=== PATIENT | male | born 1945 ===

== ENCOUNTER 2024-06-18 17:25 | Outpatient (REF) | payer MEDICARE, MEDICAID, SELFPAY ==
[2024-06-18 15:29] LABS: HGB 12.7 g/dL (13.5-17.5); MCHC 32.6 % (32.0-36.0); MCV 89 fL (80-95); MPV 10.9 fL (8.0-11.0); Platelet Count 253 10^3/uL (130-400); RBC 4.38 10^6/uL (4.36-5.78); RDW 14.2 % (11.8-14.1); RDW-SD 46.2 fL; WBC 2.83 10^3/uL (4.4-10.8)
[2024-06-18 16:28] LABS: ALT 20 U/L (16-63); AST 17 U/L (15-37); Albumin 3.4 g/dL (3.4-5.0); Alkaline Phosphatase 65 U/L (46-116); Anion Gap 6.8 mmol/L (3-11); BUN 17 mg/dL (7-18); Bilirubin, Total 0.48 mg/dL (0.2-1.0); CO2 29.2 mmol/L (21.0-32.0); CREATININE 0.9 mg/dL (0.70-1.30); Calcium 8.9 mg/dL (8.5-10.1); Chloride 103 mmol/L (98-107); Estimated GFR 86.88 (mL/min/1.73m2); Glucose 129 mg/dL (74-106); Potassium 4.4 mmol/L (3.5-5.1); Sodium 139 mmol/L (136-145); Total Protein 6.2 g/dL (6.4-8.2)
== END 2024-06-18 17:26 | disposition home or self-care (01) ==
LOC: LBN 17:25
PROVIDERS: PCP Family Medicine; Visit Provider Family Medicine
DX: R68.89 Other general symptoms and signs (principal)
CPT/HCPCS: 80053; 85027

== ENCOUNTER 2025-04-04 15:08 | Outpatient (REF) | payer MEDICARE, MEDICAID, SELFPAY ==
[2025-04-04 14:25] LABS: ALT 34 U/L (16-63); AST 18 U/L (15-37); Albumin 3.8 g/dL (3.4-5.0); Alkaline Phosphatase 66 U/L (46-116); BUN 16 mg/dL (7-18); Bilirubin, Total 0.8 mg/dL (0.2-1.0); CREATININE 0.9 mg/dL (0.70-1.30); Calcium 8.7 mg/dL (8.5-10.1); Calculated LDL 41 mg/dL (<100); Chloride 103 mmol/L (98-107); Cholesterol 94 mg/dL (<200); Estimated GFR 86.88 (mL/min/1.73m2); Glucose 71 mg/dL (74-106); HDL Cholesterol 45 mg/dL (>or=40); Potassium 4.4 mmol/L (3.5-5.1); Sodium 141 mmol/L (136-145); Total Protein 6.2 g/dL (6.4-8.2); Triglyceride 44 mg/dL (<150)
== END 2025-04-04 15:09 | disposition home or self-care (01) ==
LOC: LBN 15:08
PROVIDERS: PCP Family Medicine; Visit Provider Family Medicine
DX: I25.10 Atherosclerotic heart disease of native coronary artery without angina pectoris (principal)
CPT/HCPCS: 80053; 80061

== ENCOUNTER 2025-05-09 22:26 | Emergency (ER) | payer MEDICARE, MEDICAID, SELFPAY ==
[2025-05-09] VITALS (12 sets, daily range): BP systolic 99–219; BP diastolic 59–197; PULSE 40–227; RESP 9–18; TEMP 36.7; O2SAT 95–96
--- NOTE | 2025-05-09 22:33 | W.ED.GENAD ---
Discharge Plan Disposition Patient Disposition: Home Condition: Good Discharge Details Clinical Impression: Diarrhea, Dehydration Primary Care Provider: Bekah Flowers ED Provider: Davy Soares Discharge Instructions Instructions: Dehydration, Adult (DC), Diarrhea, Adult ED Additional Instructions: At this time your C. difficile testing was negative. You have been rehydrated with IV fluids. Your laboratory workup is otherwise stable. If you do have continued diarrhea, I have given you an order form to go home with that has the orders for the additional stool testing. We are not able to perform this here tonight because you did not have enough stool and the diarrhea has seemingly improved. If you notice any worsening of your symptoms, or any new symptoms such as vomiting, diarrhea, fever, chills, shortness of breath, chest pain, numbness, weakness, or fainting , please return immediately to the emergency department for reevaluation. Please follow up with your primary care provider as soon as possible for reassessment and reevaluation. As always, it was a pleasure participating in your medical care today. Referrals: Bekah Flowers [Primary Care Provider, Medicine] HPI General Date/Time Provider Initiated Documentation: 05/09/25 22:29. HPI Narrative: This is an 80-year-old nonverbal male with past medical history of Alzheimer's dementia, coronary artery disease myocardial infarction, BPH, heart valve, who currently resides at [facility], who presents today for diarrhea. Patient cannot add to the history, but nursing staff from [facility] states that for the last 2 days he has had persistent nonbloody none melanotic stool. No other complaints. No vomiting. No fever. He has been prescribed Lomotil with no improvement of symptoms per [facility]. No other known history or complaints at this time. This is the patient's first time at our facility. General Stated Complaint: Nausea/Vomit/Diar MAME: 3 Exam Narrative Exam Narrative: 1.Const: Well-nourished, Well-developed, appearing stated age 2.Eyes: PERRL, no conjunctival injection, and symmetrical lids. 3.ENT: Atraumatic external nose and ears. Moist MM. Neck: Symmetric, trachea midline, No thyromegaly. 4.CVS: +S1/S2, Peripheral pulses 2+ and equal in all extremities. Brisk capillary refill in all extremities. 5.RESP: Unlabored respiratory effort. Clear to auscultation bilaterally. No wheezes rales or rhonchi 6.GI: Soft, Nontender/Nondistended, No hepatosplenomegaly. No guarding or rebound. 7.MSK: Normocephalic/Atraumatic, Extremities w/o deformity or ttp No cyanosis or clubbing, Normal movement of all extremities 8.Skin: Warm, Dry. No rashes or lesions. 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 Sensation grossly intact, no focal neurologic deficits. 10.Psych: (AAO) x3. Appropriate mood and affect Course Vital Signs Vital signs: Vital Signs Temperature 36.7 C 05/09/25 22:28 Pulse 59 L 05/09/25 22:28 Respiratory Rate 18 05/09/25 22:28 Blood Pressure 174/138 H 05/09/25 22:28 Pulse Oximetry 96 05/09/25 22:28 Temperature 36.7 C 05/09/25 22:28 Temperature Source Oral 05/09/25 22:28 Pulse 59 L 05/09/25 22:28 Respiratory Rate 18 05/09/25 22:28 Blood Pressure 174/138 H 05/09/25 22:28 Blood Pressure Position Sitting 05/09/25 22:28 Pulse Oximetry 96 05/09/25 22:28 Oxygen Delivery Method Room Air 05/09/25 22:28 Oxygen Flow Rate 0 05/09/25 22:28 Medical Decision Making This is an 80-year-old nonverbal male with past medical history of Alzheimer's dementia, coronary artery disease myocardial infarction, BPH, heart valve, who currently resides at [facility], who presents today for diarrhea. Patient cannot add to the history, but nursing staff from [facility] states that for the last 2 days he has had persistent nonbloody none melanotic stool. No other complaints. No vomiting. No fever. He has been prescribed Lomotil with no improvement of symptoms per [facility]. No other known history or complaints at this time. This is the patient's first time at our facility. Exam demonstrates moist mucous membranes, nontender abdomen, nonverbal patient otherwise. No active stool in the patient's diaper at this time. Will check for stool cultures, will gently rehydrate and check for electrolyte abnormalities, we will monitor closely and reassess. Will perform C. difficile testing. 1:47 AM Patient did not have any bowel movements here. Rectal exam demonstrated a small amount of moderate thickness stool. This was tested for C. difficile, and was negative. The remainder of his laboratory workup was benign. He was given a 500 cc fluid bolus and tolerated this well., Patient otherwise shows no signs of life-threatening intra-abdominal pathology, profound diarrhea or C. difficile colitis. No evidence to suggest toxic megacolon. I did contact his daughter who is the power of cost control specialist Mary. Discussed the case with her and the findings. She understands. Patient will be [facility]. I have extensively reviewed the treatment plan and discharge instructions with the patient and their family. I have addressed all patient concerns at this time. The patient and family was made aware of what symptoms to monitor for that would warrant a return to the emergency department. Discussed the plan with the patient and family, they demonstrate verbal understanding and agreement with our assessment and plan at this time. The documentation in this chart was dictated using s0cket dictation software. Please excuse any dictation errors. PFSH All Active Problems (Updated 05/10/25 @ 01:47 by Davy Soares DO) Dehydration (Acute) Diarrhea (Acute) Social History Smoking risk assessment performed?: No Alcohol Intake: never Substance use type: does not use
[2025-05-09 23:13] LABS: Abs Immature Grans 0.02 10^3/uL (0.0-0.06); HCT 34.3 % (40.0-50.0); HGB 11.4 g/dL (13.5-17.5); Immature Grans % 0.3 %; MCH 30.6 pg (27.0-33.0); MCHC 33.2 % (32.0-36.0); MCV 92 fL (80-95); MPV 11.3 fL (8.0-11.0); Platelet Count 166 10^3/uL (130-400); RBC 3.73 10^6/uL (4.36-5.78); RDW 15.7 % (11.8-14.1); RDW-SD 53.1 fL; WBC 6.29 10^3/uL (4.4-10.8)
[2025-05-09] MEDS: Normal Saline 500 ML IV (23:15)
[2025-05-09 23:30] LABS: ALT 25 U/L (16-63); AST 23 U/L (15-37); Albumin 3.4 g/dL (3.4-5.0); Alkaline Phosphatase 55 U/L (46-116); Anion Gap 6.4 mmol/L (3-11); BUN 19 mg/dL (7-18); Bilirubin, Total 0.6 mg/dL (0.2-1.0); CO2 29.6 mmol/L (21.0-32.0); Calcium 8.4 mg/dL (8.5-10.1); Chloride 106 mmol/L (98-107); Estimated GFR 93.15 (mL/min/1.73m2); Glucose 102 mg/dL (74-106); Magnesium 2.1 mg/dL (1.8-2.4); Potassium 4.0 mmol/L (3.5-5.1); Sodium 142 mmol/L (136-145); Total Protein 5.9 g/dL (6.4-8.2)
[2025-05-10 01:29] LABS: EPI 027-NAP1-B1 PRESUMPTIVE NEGATIVE
== END 2025-05-10 02:14 | disposition home or self-care (01) ==
PROVIDERS: Emergency Provider Student in an Organized Health Care Education/Training Program; PCP Family Medicine
DX: E86.0 Dehydration (principal); R19.7 Diarrhea, unspecified
CPT/HCPCS: 80053; 87015; 87269; 87272; 87505; 96360; 99284; 83735; 85025; 99283

== ENCOUNTER 2025-06-03 17:42 | Outpatient (REF) | payer MEDICARE, MEDICAID, SELFPAY ==
[2025-06-03 13:33] LABS: Abs Immature Grans 0.02 10^3/uL (0.0-0.06); HCT 39.7 % (40.0-50.0); HGB 13.0 g/dL (13.5-17.5); Immature Grans % 0.2 %; MCH 30.5 pg (27.0-33.0); MCHC 32.7 % (32.0-36.0); MCV 93 fL (80-95); MPV 11.8 fL (8.0-11.0); Platelet Count 192 10^3/uL (130-400); RBC 4.26 10^6/uL (4.36-5.78); RDW 15.1 % (11.8-14.1); RDW-SD 52.0 fL; WBC 9.30 10^3/uL (4.4-10.8)
[2025-06-03 14:07] LABS: ALT 18 U/L (16-63); AST 14 U/L (15-37); Albumin 3.6 g/dL (3.4-5.0); Alkaline Phosphatase 61 U/L (46-116); Anion Gap 4.8 mmol/L (3-11); BUN 21 mg/dL (7-18); Bilirubin, Total 0.9 mg/dL (0.2-1.0); CO2 32.2 mmol/L (21.0-32.0); Calcium 8.5 mg/dL (8.5-10.1); Calculated LDL 62 mg/dL (<100); Chloride 105 mmol/L (98-107); Cholesterol 114 mg/dL (<200); Estimated GFR 93.15 (mL/min/1.73m2); Glucose 149 mg/dL (74-106); HDL Cholesterol 44 mg/dL (>or=40); Potassium 4.5 mmol/L (3.5-5.1); Sodium 142 mmol/L (136-145); TSH (W/Ref FT4) 1.23 uIU/mL (0.36-3.74); Total Protein 5.9 g/dL (6.4-8.2); Triglyceride 42 mg/dL (<150); Vitamin D 25 Total 27 ng/mL (30-100)
== END 2025-06-03 17:43 | disposition home or self-care (01) ==
LOC: LBN 17:42
PROVIDERS: PCP Family Medicine; Visit Provider Nurse Practitioner Adult Health
DX: N18.2 Chronic kidney disease, stage 2 (mild) (principal)
CPT/HCPCS: 80053; 80061; 82306; 84443; 85025

== ENCOUNTER 2025-07-10 17:35 | Outpatient (REF) | payer MEDICARE, MEDICAID, SELFPAY ==
[2025-07-10 18:35] LABS: Abs Immature Grans 0.05 10^3/uL (0.0-0.06); HCT 38.9 % (40.0-50.0); HGB 12.8 g/dL (13.5-17.5); Immature Grans % 0.8 %; MCH 30.5 pg (27.0-33.0); MCHC 32.9 % (32.0-36.0); MCV 93 fL (80-95); MPV 12.0 fL (8.0-11.0); Platelet Count 189 10^3/uL (130-400); RBC 4.20 10^6/uL (4.36-5.78); RDW 14.6 % (11.8-14.1); RDW-SD 50.0 fL; WBC 6.02 10^3/uL (4.4-10.8)
[2025-07-10 19:26] LABS: ALT 46 U/L (16-63); AST 28 U/L (15-37); Albumin 3.6 g/dL (3.4-5.0); Alkaline Phosphatase 58 U/L (46-116); Anion Gap 10.0 mmol/L (3-11); BUN 14 mg/dL (7-18); Bilirubin, Total 0.4 mg/dL (0.2-1.0); CO2 28.0 mmol/L (21.0-32.0); Calcium 8.5 mg/dL (8.5-10.1); Chloride 105 mmol/L (98-107); Estimated GFR 93.15 (mL/min/1.73m2); Folate 13.6 ng/mL (8.6-20.0); Glucose 113 mg/dL (74-106); Potassium 4.4 mmol/L (3.5-5.1); Sodium 143 mmol/L (136-145); TSH 1.52 uIU/mL (0.36-3.74); Total Protein 6.1 g/dL (6.4-8.2); Vitamin B12 593 pg/mL (193-986)
== END 2025-07-10 17:36 | disposition home or self-care (01) ==
LOC: LBN 17:35
PROVIDERS: PCP Family Medicine; Visit Provider Nurse Practitioner Adult Health
DX: F33.1 Major depressive disorder, recurrent, moderate (principal); I13.10 Hypertensive heart and chronic kidney disease without heart failure, with stage 1 through stage 4 chronic kidney disease, or unspecified chronic kidney disease
CPT/HCPCS: 80053; 80164; 82607; 82746; 84443; 85025

== ENCOUNTER 2025-08-24 14:52 | Outpatient (REF) | payer MEDICARE, MEDICAID, SELFPAY ==
[2025-08-24 15:39] LABS: COVID-19 PCR Negative (Negative); RSV PCR Negative (Negative)
== END 2025-08-24 14:53 | disposition home or self-care (01) ==
LOC: LBN 14:52
PROVIDERS: PCP Family Medicine; Visit Provider Nurse Practitioner Adult Health
DX: J06.9 Acute upper respiratory infection, unspecified (principal)
CPT/HCPCS: 87637

== ENCOUNTER 2025-09-30 11:35 | Emergency (ER) | payer MEDICARE, MEDICAID, SELFPAY ==
[2025-09-30 11:38] VITALS: BP 102/61; PULSE 80; RESP 24; TEMP 37; O2SAT 94
[2025-09-30 11:42] VITALS: BP 102/61; PULSE 80; RESP 24; TEMP 37; O2SAT 94
--- NOTE | 2025-09-30 13:15 | DI.RAD_ITS ---
Exam(s) XR HIP PELVIS ADULT BL EXAM: XR HIP PELVIS ADULT BL CLINICAL HISTORY: weakness. TECHNIQUE: 2D digital imaging was performed. Three views. COMPARISON: No exams were available for comparison FINDINGS: BONES: No acute fracture is present. No bony destructive lesion is seen. JOINTS: No dislocation present. There is mild bilateral hip joint space narrowing and periarticular spurring. There are degenerative changes of the sacroiliac joints. Pubic symphysis is unremarkable. SOFT TISSUE: Normal. IMPRESSION: No acute abnormality. DATA REPOSITORY: RADIATION DOSE DELIVERED:
--- NOTE | 2025-09-30 13:15 | RT.EKG_ITS ---
APPROVED REPORT Exam: Resting ECG Reason for Exam: weakness Patient Location: E HR:57 bpm ECG Measurements Heart Rate 57 AXIS FL 187 P 36 QRSd 117 QRS -35 QT 453 T 41 QTc 442 Conclusion Sinus bradycardia...rate< 60 Nonspecific intraventricular conduction delay...QRSd >115mS, not LBBB/RBBB No Occlusion MD
--- NOTE | 2025-09-30 13:28 | DI.RAD_ITS ---
Exam(s) XR CHEST 1V IN DI DEPT EXAM: XR CHEST 1V IN DI DEPT CLINICAL HISTORY: weakness TECHNIQUE: 2D digital imaging was performed. COMPARISON: No exams were available for comparison FINDINGS: Exam is limited by poor pulmonary inflation and under penetration. LUNGS: Grossly clear. No pleural abnormality seen. HEART: Mildly enlarged. AORTA: Normal diameter. BONES: Unremarkable for age. Soft tissues: Unremarkable. IMPRESSION: No acute findings. DATA REPOSITORY: RADIATION DOSE DELIVERED:
[2025-09-30 14:28] LABS: COVID-19 PCR Negative (Negative); RSV PCR Negative (Negative)
[2025-09-30] MEDS: LORazepam 2 MG/ML VIAL 0.5 MG IVP ×2 (14:56→16:40)
[2025-09-30] MEDS: Normal Saline 500 ML IV (14:57)
[2025-09-30 15:04] LABS: Abs Immature Grans 0.06 10^3/uL (0.0-0.06); HCT 42.7 % (40.0-50.0); HGB 13.8 g/dL (13.5-17.5); Immature Grans % 0.8 %; MCH 29.3 pg (27.0-33.0); MCHC 32.3 % (32.0-36.0); MCV 91 fL (80-95); MPV 11.4 fL (8.0-11.0); Platelet Count 165 10^3/uL (130-400); RBC 4.71 10^6/uL (4.36-5.78); RDW 14.6 % (11.8-14.1); RDW-SD 49.1 fL; WBC 7.43 10^3/uL (4.4-10.8)
[2025-09-30 15:31] LABS: ALT 21 U/L (10-49); AST 23 U/L (<34); Albumin 3.9 g/dL (3.2-5.0); Alkaline Phosphatase 57 U/L (46-116); Anion Gap 7.4 mmol/L (3-11); BUN 23 mg/dL (9-23); Bilirubin, Total 0.5 mg/dL (0.2-1.2); CO2 30.6 mmol/L (20.0-31.0); Calcium 8.9 mg/dL (8.3-10.6); Chloride 105 mmol/L (98-107); Glucose 93 mg/dL (74-106); Potassium 4.2 mmol/L (3.5-5.1); Sodium 143 mmol/L (136-145); Total Protein 6.3 g/dL (5.7-8.2)
[2025-09-30 15:38] LABS: Troponin I 7 ng/L (<54)
--- NOTE | 2025-09-30 15:39 | W.ED.GENAD ---
Discharge Plan Disposition Patient Disposition: [facility] Facility(SNF) Condition: Stable Discharge Details Clinical Impression: Weakness Primary Care Provider: Bekah Flowers ED Provider: Davy Watts Home Meds and New Rx's Prescriptions: Continued donepezil [Aricept] 10 mg tablet 10 mg PO QHS aspirin [Adult Low Dose Aspirin] 81 mg tablet,delayed release (DR/EC) 81 mg PO DAILY polyethylene glycol 3350 [ClearLax] 17 gram/dose powder 17 g PO DAILY PRN mirtazapine 15 mg tablet 15 mg PO QHS silodosin [Rapaflo] 4 mg capsule 4 mg PO DAILY Rx Instructions: must administer with a meal/food cimetidine 400 mg tablet 400 mg PO BID Rx Instructions: administer with meals divalproex [Depakote Sprinkles] 125 mg capsule, delayed rel sprinkle 375 mg PO BID tamsulosin 0.4 mg capsule 0.4 mg PO BID acetaminophen 325 mg capsule 650 mg PO Q4H PRN Discharge Instructions Instructions: Generalized Weakness Additional Instructions: Patient seen in the emergency department for possibly favoring right leg versus generalized weakness, there is no evidence of elevated white blood cells, lactate is normal, no trauma to right hip on x-ray, no abnormality chest x-ray, no abnormality head CT, urine culture is pending but there is no signs of severe infection on urinalysis. Unclear what is causing patient's increased agitation from his baseline state but no clear emergent pathology carey lane's visit, please return for any other emergent concerns. Referrals: Bekah Flowers [Primary Care Provider, Medicine] Discharge Data Discharge Date/Time-TO BE ENTERED AT DEPARTURE: 09/30/25 21:07 HPI General Date/Time Provider Initiated Documentation: 09/30/25 12:20. HPI Narrative: This 80-year-old male with history of dementia nonverbal, DPOA Mary presents with report of right lower extremity pain. Patient reportedly was having trouble walking and limping per rehab staff. He was also agitated which apparently is atypical for him per staff. There have been no reported falls vomiting or illnesses and patient was at his baseline yesterday reportedly. No change of medications per rehab or daughter. She states sometimes her symptoms wax and wane with his dementia although typically he does not have trouble ambulating and walks independently without a walker. Related Data Home Medications ?Medication ?Instructions ?Recorded ?Confirmed acetaminophen 325 mg capsule 650 mg PO Q4H PRN 09/30/25 09/30/25 aspirin 81 mg tablet,delayed 81 mg PO DAILY 09/30/25 09/30/25 release (Adult Low Dose Aspirin) cimetidine 400 mg tablet 400 mg PO BID 09/30/25 09/30/25 divalproex 125 mg capsule,delayed 375 mg PO BID 09/30/25 09/30/25 release sprinkle (Depakote Sprinkles) donepezil 10 mg tablet (Aricept) 10 mg PO QHS 09/30/25 09/30/25 mirtazapine 15 mg tablet 15 mg PO QHS 09/30/25 09/30/25 polyethylene glycol 3350 17 17 g PO DAILY PRN 09/30/25 09/30/25 gram/dose oral powder (ClearLax) silodosin 4 mg capsule (Rapaflo) 4 mg PO DAILY 09/30/25 09/30/25 tamsulosin 0.4 mg capsule 0.4 mg PO BID 09/30/25 09/30/25 General Stated Complaint: GenMedical MAME: 3 Exam Narrative Exam Narrative: Patient is alert, he responds to his name, he has no evidence of trauma, I examined him from head to toe, he does not have any specific areas of discomfort when I press, his oropharynx patent his uvula is midline, his lower extremities seem weak Course Vital Signs Vital signs: Vital Signs Temperature 37.0 C 09/30/25 11:38 Pulse 80 09/30/25 11:38 Respiratory Rate 24 09/30/25 11:38 Blood Pressure 102/61 09/30/25 11:38 Pulse Oximetry 94 09/30/25 11:38 Temperature 37.0 C 09/30/25 11:42 Pulse 80 09/30/25 11:42 Respiratory Rate 24 09/30/25 11:42 Blood Pressure 102/61 09/30/25 11:42 Blood Pressure Position Sitting 09/30/25 11:42 Pulse Oximetry 94 09/30/25 11:42 Oxygen Delivery Method Room Air 09/30/25 11:42 Oxygen Flow Rate 0 09/30/25 11:42 Lab/Test Results Lab/Test Results: 09/30/25 14:50 Blood Blood Culture - Pending 09/30/25 13:28 Blood Blood Culture - Pending Laboratory Tests Range/Units 09/30/25 09/30/25 13:45 14:50 WBC (4.4-10.8) 10^3/uL 7.43 RBC (4.36-5.78) 10^6/uL 4.71 Hgb (13.5-17.5) g/dL 13.8 Hct (40.0-50.0) % 42.7 MCV (80-95) fL 91 MCH (27.0-33.0) pg 29.3 MCHC (32.0-36.0) % 32.3 RDW (11.8-14.1) % 14.6 H Plt Count (130-400) 10^3/uL 165 MPV (8.0-11.0) fL 11.4 H Immature Gran % % 0.8 Neutrophils % % 61.8 Lymphocytes % % 24.2 Monocytes % % 9.7 Eosinophils % % 2.8 Basophils % % 0.7 Nucleated RBC % (0.0-0.3) % 0.0 Absolute Neutrophils (1.2-6.7) 10^3/uL 4.59 Absolute Lymphocytes (1.2-3.4) 10^3/uL 1.80 Absolute Monocytes (0.1-0.8) 10^3/uL 0.72 Absolute Eosinophils (0.0-0.7) 10^3/uL 0.21 Absolute Basophils (0.0-0.2) 10^3/uL 0.05 VBG Lactate (<or=2.0) mmol/L 1.9 Sodium (136-145) mmol/L 143 Potassium (3.5-5.1) mmol/L 4.2 Chloride (98-107) mmol/L 105 Carbon Dioxide (20.0-31.0) mmol/L 30.6 Anion Gap (3-11) mmol/L 7.4 BUN (9-23) mg/dL 23 Creatinine (0.73-1.18) mg/dL 1.03 Est GFR (CKD-EPI 2020) (mL/min/1.73m2) 69.41 Glucose (74-106) mg/dL 93 Calcium (8.3-10.6) mg/dL 8.9 Total Bilirubin (0.2-1.2) mg/dL 0.5 AST (<34) U/L 23 ALT (10-49) U/L 21 Alkaline Phosphatase (46-116) U/L 57 Troponin I (<54) ng/L 7 Total Protein (5.7-8.2) g/dL 6.3 Albumin (3.2-5.0) g/dL 3.9 COVID-19 Source Nasopharynx SARS-CoV-2 (PCR) (Negative) Negative Influenza Type A (PCR) (Negative) Negative Influenza Type B (PCR) (Negative) Negative RSV (PCR) (Negative) Negative Medical Decision Making Results: Chest x-ray and hip x-rays per radiology interpretation on my review do not show acute abnormality, CBC, CMP, blood cultures all within normal limits including troponin Assessment plan: Patient here with weakness versus hip injury. His x-rays and diagnostic labs are reassuring. This could certainly be progression of dementia but patient is pending urinalysis which will need to be obtained with straight cath secondary to baseline urinary incontinence. Flu COVID and RSV are negative. Patient's urinalysis is negative I see no reason why he cannot return to the rehabilitation center at this time. I did consider CT head however patient seems to be at his baseline there is been no head injury. Will discuss with Mary once urinalysis is back regarding plan. PFSH All Active Problems (Updated 09/30/25 @ 20:32 by BOBBY Aguiar) Weakness (Acute) Social History Smoking risk assessment performed?: No Alcohol Intake: never Substance use type: does not use
[2025-09-30 16:12] LABS: Troponin I 6 ng/L (<54)
--- NOTE | 2025-09-30 17:13 | W.EDPROG ---
Date of service: 09/30/25 Time of Service: 17:14 Medical Decision Making This dictation utilizes [id number] dictation software and may contain unedited grammatical errors. Patient signed out to me by Yoselin Canales PA-C, please see her complete note. At this time we are waiting for urinalysis on the suspicion of UTI on a patient with known dementia sent to us from rehab facility who has been loudly yelling for an unknown reason and possibly favoring his right leg. X-ray of the hip is negative, patient's laboratory workup is reassuring for no signs of severe infection, no major electrolyte abnormalities, serial negative troponins, negative for COVID flu and RSV and lactate showing unlikely sepsis, chest x-ray unremarkable. Plan to disposition back to facility with strict return criteria but no definitive source of the patient's increased agitation beyond his baseline dementia. Patients' medical history: Alzheimer's, history of colon cancer, difficulty swallowing, hematuria, Parkinson's disease, hyperlipidemia, Lyme disease, impaired fasting glucose, monocular diplopia, anemia, GI bleeding, remote history of myocardial infarction, diverticular disease. Family and social history: Lives at SNF, POA is Mary. Differential / pathologies of concern include at time of sign-out no suspicion for acute stroke, ACS, profound anemia, sepsis, considering UTI, adding CT head for other cause of agitation. Diagnostic studies of: -Reviewed prior labs, added CT head which was negative, UA shows no signs of infection, shows hematuria which is consistent with patient's history. Interventions of: -Started maintenance fluids at 150 mL an hour, discussed with patient's POA and him sending back to SNF. ED Course/Assessment/Plan: 80-year-old male presents with increased agitation in the setting of chronic Alzheimer's and Parkinson's disease, awaiting UA at time of signout, added to CT head while awaiting UA which was negative, UA shows hematuria with inconclusive micro, urine culture sent, plan to discharge back to facility as he has adequate supervision, no signs of sepsis, no signs of aspiration pneumonia on chest x-ray, no signs of hip trauma to the right lower extremity. Findings not consistent with ACS, Aspiration PNA, Sepsis, ICH, Brain mass, clear UTI, electrolyte abnormality. Disposition of Weakness. Patient verbalized understanding of the plan and return to ED criteria and engaged in shared decision making. Medical Records Medical records reviewed: Yes I reviewed the patient's medical records. Imaging Data Radiologic Study: Attestation: I personally reviewed and interpreted this imaging study as follows: Imaging: X-Ray Radiologist's impression: EXAM: XR HIP PELVIS ADULT BL CLINICAL HISTORY: weakness. TECHNIQUE: 2D digital imaging was performed. Three views. COMPARISON: No exams were available for comparison FINDINGS: BONES: No acute fracture is present. No bony destructive lesion is seen. JOINTS: No dislocation present. There is mild bilateral hip joint space narrowing and periarticular spurring. There are degenerative changes of the sacroiliac joints. Pubic symphysis is unremarkable. SOFT TISSUE: Normal. IMPRESSION: No acute abnormality. Radiologic Study #2: Attestation: I personally reviewed and interpreted this imaging study as follows: Imaging: X-Ray Radiologist's impression: EXAM: XR CHEST 1V IN DI DEPT CLINICAL HISTORY: weakness TECHNIQUE: 2D digital imaging was performed. COMPARISON: No exams were available for comparison FINDINGS: Exam is limited by poor pulmonary inflation and under penetration. LUNGS: Grossly clear. No pleural abnormality seen. HEART: Mildly enlarged. AORTA: Normal diameter. BONES: Unremarkable for age. Soft tissues: Unremarkable. IMPRESSION: No acute findings. Radiologic Study #3: Attestation: I personally reviewed and interpreted this imaging study as follows: Imaging: CT Scan Radiologist's impression: EXAM: CT HEAD WO CLINICAL HISTORY: unsteady gait in dementia, altered?. TECHNIQUE: Imaging Protocol: Axial computed tomography images with coronal and sagittal reformatted images were created and reviewed COMPARISON: No exams were available for comparison FINDINGS: Exam limited by streak artifact in the on the lower images. Ventricles and Extra axial spaces: Normal in size and morphology for the patient's age and degree of atrophy.. Hemorrhage: None. Cerebral parenchyma: No evidence of acute infarct or mass. Mild atrophy consistent with the patient's age. Midline shift: None. Brainstem/Cerebellum: Normal. Bones: No skull or facial fractures. Visualized Paranasal sinuses:Clear. Mastoids: Clear. Soft Tissues: Unremarkable. ORBITS: Unremarkable. PITUITARY: Not enlarged. IMPRESSION: No acute intracranial process. Lab Data Lab results reviewed: Yes I reviewed the patient's lab results. Labs: 09/30/25 19:44 Urine - Reflex from Ua Urine Culture - Pending 09/30/25 16:16 Blood Blood Culture - Pending 09/30/25 14:50 Blood Blood Culture - Pending Laboratory Tests Range/Units 09/30/25 09/30/25 09/30/25 13:45 14:50 15:52 WBC (4.4-10.8) 10^3/uL 7.43 RBC (4.36-5.78) 10^6/uL 4.71 Hgb (13.5-17.5) g/dL 13.8 Hct (40.0-50.0) % 42.7 MCV (80-95) fL 91 MCH (27.0-33.0) pg 29.3 MCHC (32.0-36.0) % 32.3 RDW (11.8-14.1) % 14.6 H Plt Count (130-400) 10^3/uL 165 MPV (8.0-11.0) fL 11.4 H Immature Gran % % 0.8 Neutrophils % % 61.8 Lymphocytes % % 24.2 Monocytes % % 9.7 Eosinophils % % 2.8 Basophils % % 0.7 Nucleated RBC % (0.0-0.3) % 0.0 Absolute Neutrophils (1.2-6.7) 10^3/uL 4.59 Absolute Lymphocytes (1.2-3.4) 10^3/uL 1.80 Absolute Monocytes (0.1-0.8) 10^3/uL 0.72 Absolute Eosinophils (0.0-0.7) 10^3/uL 0.21 Absolute Basophils (0.0-0.2) 10^3/uL 0.05 VBG Lactate (<or=2.0) mmol/L 1.9 Sodium (136-145) mmol/L 143 Potassium (3.5-5.1) mmol/L 4.2 Chloride (98-107) mmol/L 105 Carbon Dioxide (20.0-31.0) mmol/L 30.6 Anion Gap (3-11) mmol/L 7.4 BUN (9-23) mg/dL 23 Creatinine (0.73-1.18) mg/dL 1.03 Est GFR (CKD-EPI 2020) (mL/min/1.73m2) 69.41 Glucose (74-106) mg/dL 93 Calcium (8.3-10.6) mg/dL 8.9 Total Bilirubin (0.2-1.2) mg/dL 0.5 AST (<34) U/L 23 ALT (10-49) U/L 21 Alkaline Phosphatase (46-116) U/L 57 Troponin I (<54) ng/L 7 6 Total Protein (5.7-8.2) g/dL 6.3 Albumin (3.2-5.0) g/dL 3.9 Urine Color (Yellow) Urine Clarity (Clear) Urine pH (5-8) Ur Specific [place] (1.005-1.025) Urine Protein (Neg-Trace) mg/dL Urine Ketones (Negative) mg/dL Urine Blood (Negative) Urine Nitrite (Negative) Urine Bilirubin (Negative) Urine Urobilinogen (Up to 0.2) mg/dL Ur Leukocyte Esterase (Negative) Urine RBC (0-2) HPF Urine WBC Ur Epithelial Cells Urine Crystals Urine Bacteria Urine Mucus Ur Culture Indicated? Urine Glucose (Negative) mg/dL COVID-19 Source Nasopharynx SARS-CoV-2 (PCR) (Negative) Negative Influenza Type A (PCR) (Negative) Negative Influenza Type B (PCR) (Negative) Negative RSV (PCR) (Negative) Negative Range/Units 09/30/25 19:44 WBC (4.4-10.8) 10^3/uL RBC (4.36-5.78) 10^6/uL Hgb (13.5-17.5) g/dL Hct (40.0-50.0) % MCV (80-95) fL MCH (27.0-33.0) pg MCHC (32.0-36.0) % RDW (11.8-14.1) % Plt Count (130-400) 10^3/uL MPV (8.0-11.0) fL Immature Gran % % Neutrophils % % Lymphocytes % % Monocytes % % Eosinophils % % Basophils % % Nucleated RBC % (0.0-0.3) % Absolute Neutrophils (1.2-6.7) 10^3/uL Absolute Lymphocytes (1.2-3.4) 10^3/uL Absolute Monocytes (0.1-0.8) 10^3/uL Absolute Eosinophils (0.0-0.7) 10^3/uL Absolute Basophils (0.0-0.2) 10^3/uL VBG Lactate (<or=2.0) mmol/L Sodium (136-145) mmol/L Potassium (3.5-5.1) mmol/L Chloride (98-107) mmol/L Carbon Dioxide (20.0-31.0) mmol/L Anion Gap (3-11) mmol/L BUN (9-23) mg/dL Creatinine (0.73-1.18) mg/dL Est GFR (CKD-EPI 2020) (mL/min/1.73m2) Glucose (74-106) mg/dL Calcium (8.3-10.6) mg/dL Total Bilirubin (0.2-1.2) mg/dL AST (<34) U/L ALT (10-49) U/L Alkaline Phosphatase (46-116) U/L Troponin I (<54) ng/L Total Protein (5.7-8.2) g/dL Albumin (3.2-5.0) g/dL Urine Color (Yellow) Red Urine Clarity (Clear) Sl Cloudy Urine pH (5-8) 5.5 Ur Specific [place] (1.005-1.025) 1.025 Urine Protein (Neg-Trace) mg/dL 100 H Urine Ketones (Negative) mg/dL Trace H Urine Blood (Negative) Large H Urine Nitrite (Negative) Negative Urine Bilirubin (Negative) Small H Urine Urobilinogen (Up to 0.2) mg/dL 1.0 H Ur Leukocyte Esterase (Negative) Negative Urine RBC (0-2) HPF >50 H Urine WBC Not Applicable Ur Epithelial Cells Not Applicable Urine Crystals Not Applicable Urine Bacteria Not Applicable Urine Mucus Not Applicable Ur Culture Indicated? Yes Urine Glucose (Negative) mg/dL Negative COVID-19 Source SARS-CoV-2 (PCR) (Negative) Influenza Type A (PCR) (Negative) Influenza Type B (PCR) (Negative) RSV (PCR) (Negative) Discharge Plan Disposition Patient Disposition: Nursing Home Facility(SNF) Condition: Stable Discharge Details Clinical Impression: Weakness Primary Care Provider: Bekah Flowers ED Provider: Davy Watts Home Meds and New Rx's Prescriptions: Continued donepezil [Aricept] 10 mg tablet 10 mg PO QHS aspirin [Adult Low Dose Aspirin] 81 mg tablet,delayed release (DR/EC) 81 mg PO DAILY polyethylene glycol 3350 [ClearLax] 17 gram/dose powder 17 g PO DAILY PRN mirtazapine 15 mg tablet 15 mg PO QHS silodosin [Rapaflo] 4 mg capsule 4 mg PO DAILY Rx Instructions: must administer with a meal/food cimetidine 400 mg tablet 400 mg PO BID Rx Instructions: administer with meals divalproex [Depakote Sprinkles] 125 mg capsule, delayed rel sprinkle 375 mg PO BID tamsulosin 0.4 mg capsule 0.4 mg PO BID acetaminophen 325 mg capsule 650 mg PO Q4H PRN Discharge Instructions Instructions: Generalized Weakness Additional Instructions: Patient seen in the emergency department for possibly favoring right leg versus generalized weakness, there is no evidence of elevated white blood cells, lactate is normal, no trauma to right hip on x-ray, no abnormality chest x-ray, no abnormality head CT, urine culture is pending but there is no signs of severe infection on urinalysis. Unclear what is causing patient's increased agitation from his baseline state but no clear emergent pathology carey lane's visit, please return for any other emergent concerns. Referrals: Bekah Flowers [Primary Care Provider, Medicine]
--- NOTE | 2025-09-30 17:15 | DI.CT_ITS ---
Exam(s) CT HEAD WO EXAM: CT HEAD WO CLINICAL HISTORY: unsteady gait in dementia, altered?. TECHNIQUE: Imaging Protocol: Axial computed tomography images with coronal and sagittal reformatted images were created and reviewed COMPARISON: No exams were available for comparison FINDINGS: Exam limited by streak artifact in the on the lower images. Ventricles and Extra axial spaces: Normal in size and morphology for the patient's age and degree of atrophy.. Hemorrhage: None. Cerebral parenchyma: No evidence of acute infarct or mass. Mild atrophy consistent with the patient's age. Midline shift: None. Brainstem/Cerebellum: Normal. Bones: No skull or facial fractures. Visualized Paranasal sinuses:Clear. Mastoids: Clear. Soft Tissues: Unremarkable. ORBITS: Unremarkable. PITUITARY: Not enlarged. IMPRESSION: No acute intracranial process. RADIATION DOSE DELIVERED: Total DLP DATA REPOSITORY: All CT scans at this facility are submitted to the National Radiology Data Registry (NRDR) Dose Index Registry (DIR) with the [employer] ([employer]). RADIATION OPTIMIZATION: All CT scans at this facility use at least one of these dose optimization techniques: automated exposure control; mA and/or kV adjustment per patient size (includes targeted exams where dose is matched to clinical indication); or iterative reconstruction.
[2025-09-30] MEDS: Normal Saline 1,000 ML 150 ML IV (18:48)
--- NOTE | 2025-09-30 19:10 | NUR.NOTE ---
Updates given to Nurse [facility]os [facility]
[2025-09-30 19:47] LABS: Glucose Negative (Negative)
[2025-09-30 19:54] LABS: C & S Indicated? Yes; RBC >50 HPF (0-2)
[2025-09-30 20:02] VITALS: RESP 22
[2025-09-30 20:18] VITALS: BP 128/63; PULSE 46; TEMP 37; O2SAT 97
[2025-09-30 20:49] VITALS: BP 95/66; PULSE 46; RESP 18; TEMP 36.5; O2SAT 95
== END 2025-09-30 21:07 | disposition skilled nursing facility (03) ==
PROVIDERS: Physician Assistant; Emergency Provider Physician Assistant; PCP Family Medicine
DX: R53.1 Weakness (principal); G20.C Parkinsonism, unspecified; G30.9 Alzheimer's disease, unspecified; R31.9 Hematuria, unspecified
CPT/HCPCS: 99284; 99285; 96374; 96375; 00123; 73521; 80053; 87040; 87637; 93005; 96361; 70450; 71045; 81003; 81015; 83605; 84484; 85025; 87086; 93010; J2060